=== PATIENT | female | born 1980 | race Two or more races ===

== ENCOUNTER 2024-03-15 08:10 | Emergency (ER) | payer OTHER ==
[~2024-03-15] VITALS: Ht 165.1 cm; Wt 72.6 kg
[2024-03-15] MEDS ORDERED: LEVALBUTEROL HCL 1.25 MG/3 ML SOLUTION IH ONE ×2 (09:00→09:38)
[2024-03-15] MEDS ORDERED: IPRATROPIUM BROMIDE 0.5 MG/2.5 ML AMPUL.NEB IH ONE ×2 (09:00→09:38)
[2024-03-15] MEDS ORDERED: GUAIFENESIN/DEXTROMETHORPHAN 10ML BLIST.PACK PO ONE (09:11)
[2024-03-15] MEDS ORDERED: BENZONATATE 100 MG CAPSULE PO ONE (09:15)
[2024-03-15] MEDS ORDERED: GUAIFENESIN 200 MG/10 ML BLIST.PACK PO ONE (09:15)
[2024-03-15 10:06] LABS: HEMATOCRIT 38.7 % (36.0-45.00); HEMOGLOBIN 12.7 g/dL (12.0-15.00); MEAN CELL VOLUME 78.8 fL (80.00-100.00); MEAN CORPUSCULAR HEMOGLOBIN 25.9 pg (27.00-32.0); MEAN CORPUSCULAR HGB CONC 32.8 g/dl (32.0-36.0); PLATELET COUNT 372 K/uL (150-450); RED BLOOD COUNT 4.91 M/uL (4.00-6.00); RED CELL DISTRIBUTION WIDTH 15.6 % (11.5-14.5)
[2024-03-15 10:37] LABS: CALCIUM 9.8 mg/dL (8.5-10.1); CREATININE SERUM 0.87 mg/dL (0.55-1.02); GFR 70.73; POTASSIUM 5.25 mEq/L (3.5-5.1)
[2024-03-15 10:40] LABS: ABG PH 7.423 (7.35-7.45); ABG PO2 99.1 mmHg (80-100); ABG pCO2 41.5 mmHg (35-45); BASE EXCESS 1.9 mmol/l; BICARBONATE 26.5 mmol/l (23-25); SaO2 97.8 %; Tco2 27.8 mmol/l; allen test SATISFACTORY; o2 21 %; puncture site RADIAL LEFT
== END 2024-03-15 11:41 | disposition home or self-care (01) ==
LOC: ER 08:12
PROVIDERS: General Practice
DX: R05.9 Cough, unspecified (principal); Z20.822 Contact with and (suspected) exposure to COVID-19

== ENCOUNTER 2024-11-26 13:49 | Emergency (ER) | payer OTHER ==
[~2024-11-26] VITALS: Ht 157.5 cm; Wt 66.2 kg
[2024-11-26] MEDS ORDERED: ORPHENADRINE CITRATE 30 MG/ML AMPUL IM STA (15:02)
[2024-11-26] MEDS ORDERED: ORPHENADRINE CITRATE 30 MG/ML AMPUL ONE (15:10)
== END 2024-11-26 16:50 | disposition home or self-care (01) ==
LOC: ER 13:50
DX: R51.9 Headache, unspecified (principal); M54.2 Cervicalgia